=== PATIENT | female | born 1985 | race Caucasian/White ===

== ENCOUNTER 2022-04-26 08:00 | Outpatient (CLI) | payer BC | END 2022-04-26 23:59 | disposition home or self-care (01) | LOC: LAB 08:00 | PROVIDERS: ATTEND Physician Assistant Medical | DX: J02.9 Acute pharyngitis, unspecified (principal) | CPT/HCPCS: 87070 ==

== ENCOUNTER 2022-06-29 07:00 | Outpatient (CLI) | payer BC ==
--- NOTE | 2022-06-30 13:45 | XRAY Report ---
PROCEDURE: Cervical Spine 2 View INDICATIONS: NECK AND BACK PAIN TECHNIQUE: 3 view(s) of the cervical spine were acquired. COMPARISON: X-ray thoracic spine 06/29/2022 FINDINGS: Bones: No fractures or dislocations to the C7-T1 level. The lateral masses of C1 appear intact on t he odontoid view. No suspicious bony lesions. There is reversal cervical curvature. Soft tissues: No prevertebral soft tissue swelling. IMPRESSION: Reversal of cervical curvature. Reviewed by: Mulu Lou MD on 06/30/2022 1:44 PM PDT Approved by: Mulu Lou MD on 06/30/2022 1:44 PM PDT Station ID: [id number]
--- NOTE | 2022-06-30 13:46 | XRAY Report ---
PROCEDURE: Thoracic Spine 2 View INDICATIONS: NECK AND BACK PAIN TECHNIQUE: 2 views of the thoracic spine were acquired. COMPARISON: X-ray cervical spine 06/29/2022 FINDINGS: Bones: No fractures or dislocations. No suspicious bony lesions. 12 pairs of ribs are noted, and a ppear intact where visualized. Soft tissues: No paravertebral stripe thickening. IMPRESSION: Unremarkable exam. Reviewed by: Mulu Lou MD on 06/30/2022 1:44 PM PDT Approved by: Mulu Lou MD on 06/30/2022 1:44 PM PDT Station ID: [id number]
== END 2022-06-29 23:59 | disposition home or self-care (01) ==
LOC: DI.S 07:00
PROVIDERS: ATTEND Chiropractor
DX: S13.8XXA Sprain of joints and ligaments of other parts of neck, initial encounter (principal); S23.3XXA Sprain of ligaments of thoracic spine, initial encounter